=== PATIENT | female | born 1940 | race Hispanic/Latino ===

== ENCOUNTER 2017-03-25 10:17 | Emergency (ER) | payer MEDICARE ==
[2017-03-25 10:49] VITALS: BMI 35.4
[2017-03-25] MEDS ORDERED: DiphenhydrAMINE 50 mg/ml Inj IVP STA (11:14)
[2017-03-25] MEDS ORDERED: DiphenhydrAMINE 50 mg/ml Inj ONE (11:30)
[2017-03-25] MEDS ORDERED: Vancomycin 1 g Inj ONE (11:31)
--- NOTE | 2017-03-25 11:35 | ED PDOC ---
HPI: Skin/Bite Injury Time Seen by Provider: 03/25/17 10:35 Chief Complaint (Nursing): Abnormal Skin Integrity Chief Complaint (Provider): rash History Per: Patient History/Exam Limitations: no limitations Onset/Duration Of Symptoms: Days (x 5) Additional Complaint(s): Fabienne Keller is a 77 year old female, with no previous medical history, who presents to the ED with complaints of a generalized itchy rash ongoing for 5 days secondary to taking bactim for her leg cellulitis. She denies any shortness of breath, chest pain or throat swelling. Patient's PMD discontinued bactrim and put her on prednisone and clindamycin but the rash persisted. She reports a recent travel to [facility] from January 2017- February 2017. PMD: none provided Past Medical History Reviewed: Historical Data, Nursing Documentation, Vital Signs Vital Signs: Last Vital Signs Temp 98.6 F 03/25/17 15:57 Pulse 86 03/25/17 15:57 Resp 19 03/25/17 15:57 BP 132/74 03/25/17 15:57 Pulse Ox 99 03/26/17 15:51 - Medical History PMH: No Chronic Diseases - Family History Family History: States: Unknown Family Hx - Home Medications Home Medications: Ambulatory Orders Medication Instructions Recorded DiphenhydrAMINE [Benadryl] 25 mg PO Q6H PRN #15 cap 03/25/17 Doxycycline Monohydrate 100 mg PO BID #14 capsule 03/25/17 Permethrin 1% [Permethrin 1% 1 ea EXT DAILY #1 bottle 03/25/17 Lotion] - Allergies Allergies/Adverse Reactions: Allergies Allergy/AdvReac Type Severity Reaction Status Date / Time Penicillins Allergy RASH Verified 03/25/17 11:07 Sulfa (Sulfonamide Allergy ITCHING Verified 03/25/17 11:05 Antibiotics) Review of Systems ROS Statement: Except As Marked, All Systems Reviewed And Found Negative Constitutional: Negative for: Fever, Chills ENT: Negative for: Throat Swelling Cardiovascular: Negative for: Chest Pain Respiratory: Negative for: Shortness of Breath Skin: Positive for: Rash Physical Exam - Reviewed Nursing Documentation Reviewed: Yes Vital Signs Reviewed: Yes - Physical Exam Appears: Positive for: Well, Non-toxic, No Acute Distress Head Exam: Positive for: ATRAUMATIC, NORMAL INSPECTION, NORMOCEPHALIC Skin: Positive for: Warm, Dry, Rash (generalized papular rash with no induration or vesicles ) Eye Exam: Positive for: EOMI, Normal appearance, PERRL ENT: Positive for: Normal ENT Inspection Neck: Positive for: Normal, Painless ROM Cardiovascular/Chest: Positive for: Regular Rate, Rhythm Respiratory: Positive for: CNT, Normal Breath Sounds Gastrointestinal/Abdominal: Positive for: Normal Exam, Bowel Sounds, Soft. Negative for: Tenderness Back: Positive for: Normal Inspection Extremity: Positive for: Normal ROM, Other (erythema, warmth, edema and induration noted to the right lower extremity from the mid calf down. No crepitis noted. ). Negative for: Tenderness, Calf Tenderness, Deformity Neurologic/Psych: Positive for: Alert, Oriented - Laboratory Results Result Diagrams: 03/25/17 11:45 03/25/17 11:45 - ECG O2 Sat by Pulse Oximetry: 99 (RA) Pulse Ox Interpretation: Normal - CT Scan/US BLE DVT Other Rad Studies (CT/US): Radiology Report Reviewed (Negative B/L DVT. R groin lymph node 3.56 X 2.06 X 1.17 cm.) Medical Decision Making Medical Decision Making: Initial Plan: * labs * PTT * PT * benadryl 25 mg IV * vancomycin * blood culture * US duplex lower extremities * reevaluation Scribe Attestation: Documented by Vivi Marinelli, acting as a scribe for Vivi oRdgers MD. Provider Scribe Attestation: All medical record entries made by the Scribe were at my direction and personally dictated by me. I have reviewed the chart and agree that the record accurately reflects my personal performance of the history, physical exam, medical decision making, and the department course for this patient. I have also personally directed, reviewed, and agree with the discharge instructions and disposition. Disposition - Clinical Impression Clinical Impression: Cellulitis, Rash, Scabies - Disposition Referrals: Provider FABBY, [Primary Care Provider] - Disposition: Routine/Home Disposition Time: 15:37 Condition: STABLE Additional Instructions: FOLLOW-UP WITH YOUR PMD WITHIN 2 DAYS FOR REEVALUATION. Prescriptions: DiphenhydrAMINE [Benadryl] 25 mg PO Q6H PRN #15 cap PRN Reason: Itching / Pruritus Doxycycline Monohydrate 100 mg PO BID #14 capsule Permethrin 1% [Permethrin 1% Lotion] 1 ea EXT DAILY #1 bottle Instructions: Cellulitis (ED), Scabies (ED), Acute Rash (ED) Forms: [employer] (Faroese)
[2017-03-25 12:01] LABS: BASO # 0.1 K/uL (0.0-0.2); BASO % 0.9 % (0.0-2.0); EOS # 0.8 K/uL (0.0-0.7); EOS % 10.1 % (0.0-4.0); HEMATOCRIT 44.5 % (34.0-47.0); LYMPH # 1.6 K/uL (1.0-4.3); LYMPH % 20.7 % (20.0-40.0); MEAN CELL VOLUME 87.2 fl (81.0-99.0); MEAN CORPUSCULAR HEMOGLOBIN 28.6 pg (27.0-31.0); MEAN CORPUSCULAR HGB CONC 32.8 g/dL (33.0-37.0); MEAN PLATELET VOLUME 8.1 fl (7.2-11.7); MONO # 0.4 K/uL (0.0-0.8); MONO % 5.8 % (0.0-10.0); NEUT # 4.8 K/uL (1.8-7.0); NEUT % 62.5 % (50.0-75.0); NRBC % 0.1 % (0.0-0.0); RED CELL DISTRIBUTION WIDTH 15.7 % (11.5-14.5); WHITE BLOOD COUNT 7.7 K/uL (4.8-10.8)
[2017-03-25 12:03] LABS: ALB/GLOB RATIO 1.2 (1.0-2.1); ALKALINE PHOSPHATASE 78 U/L (38-126); ALT/SGPT 35 U/L (9-52); AST/SGOT 29 U/L (14-36); BILIRUBIN,TOTAL 0.7 mg/dl (0.2-1.3); BLOOD UREA NITROGEN 23 mg/dl (7-17); CALCIUM 9.3 mg/dL (8.4-10.2); CARBON DIOXIDE 25 mmol/L (22-30); CHLORIDE 104 mmol/L (98-107); GFR AFRICAN-AMERICAN > 60; GLUCOSE,RANDOM 96 mg/dL (65-105); POTASSIUM 4.2 MMOL/L (3.6-5.0); SODIUM 136 mmol/l (132-148); TOTAL PROTEIN 7.6 G/DL (6.3-8.2)
[2017-03-25 12:43] LABS: PARTIAL THROMBOPLASTIN TIME 30.6 Seconds (25.6-37.1)
[2017-03-25 15:57] VITALS: BP 132/74; PULSE 86; RESP 19; TEMP 98.6
[2017-03-26 15:47] VITALS: O2SAT 99
--- NOTE | 2017-03-27 09:51 | US ---
PROCEDURE: Bilateral lower extremity venous duplex Doppler. HISTORY: BLE swelling COMPARISON: None available. TECHNIQUE: Bilateral common femoral, superficial femoral, popliteal and posterior tibial veins were evaluated. Flow was assessed with color Doppler, compressibility, assessment of phasic flow and augmentation response. FINDINGS: COMMON FEMORAL VEIN: Right CFV: Unremarkable. Left CFV: Unremarkable. SUPERFICIAL FEMORAL VEIN: Right SFV: Unremarkable. Left SFV: Unremarkable. POPLITEAL VEIN: Right Popliteal: Unremarkable. Left Popliteal: Unremarkable. POSTERIOR TIBIAL VEIN: Right PTV: Unremarkable. Left PTV: Unremarkable. OTHER FINDINGS: Enlarged right inguinal lymph node 1.2 x 2.1 x 3.6 cm. IMPRESSION: No evidence of deep venous thrombosis.
== END 2017-03-25 15:58 | disposition home or self-care (01) ==
LOC: H.ER 10:17 → SUPCPDRO 10:17 → H.ER 15:58
DX: B86 Scabies (principal); Z88.0 Allergy status to penicillin
CPT/HCPCS: 80053; 85025; 85610; 85730; 87040; 93970; 96374; 99283; J1200